=== PATIENT | male | born 2000 | race Caucasian/White ===

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

== ENCOUNTER 2024-10-02 00:41 | Emergency (ER) | payer BC, OTHER ==
[~2024-10-02] VITALS: Ht 165.1 cm; Wt 164.7 kg
[~2024-10-02 00:41] MED LIST: PROZAC40 MG PO
[2024-10-02] MEDS ORDERED: HYDROXYZINE HCL25 MG PO (00:57)
[2024-10-02] MEDS ORDERED: ESCITALOPRAM OX10 MG PO (00:57)
[2024-10-02] MEDS ORDERED: LORazepam 1 MG TAB PO ONE (01:00)
[2024-10-02] MEDS ORDERED: LORazepam 1 MG HOME.PACK PO ONE (01:00)
[2024-10-02 01:07] VITALS: BP 131/78
== END 2024-10-02 01:19 | disposition home or self-care (01) ==
LOC: ED 00:41
DX: F41.0 Panic disorder [episodic paroxysmal anxiety] (principal); Z79.899 Other long term (current) drug therapy
CPT/HCPCS: 99283; A9270-GY